=== PATIENT | male | born 1930 | race Hispanic/Latino ===

== ENCOUNTER 2016-09-04 10:46 | Outpatient (CLI) | payer MEDICARE ==
--- NOTE | 2016-09-04 12:34 | Magnetic Resonance Report ---
MRI BRAIN WITHOUT CONTRAST: 09/04/16 10:46:00 CLINICAL: Altered mental status. TECHNIQUE: Axial diffusion, T1, T2, FLAIR, gradient echo T2*, and sagittal T1 sequences on a 1.5 Abby magnet. FINDINGS: The ventricles and sulci are enlarged but commensurate with age. No restricted diffusion. Moderate bilateral subcortical and periventricular multifocal white matter hyperintensities FLAIR and T2. No mass or mass effect. No hemorrhage, edema or extra-axial collection. Normal pituitary and optic chiasm. The brainstem and cerebellum are normal. Intact vascular flow voids. Normal sinuses. The orbits, and soft tissues are normal. Normal calvarium and skull base. IMPRESSION: No acute change. Moderate chronic white matter microangiopathy.
== END 2016-09-04 10:47 | disposition home or self-care (01) ==
LOC: VAS 10:46 → MRI 10:47
PROVIDERS: ATTEND Internal Medicine
DX: I67.2 Cerebral atherosclerosis (principal); R41.82 Altered mental status, unspecified; I73.89 Other specified peripheral vascular diseases
CPT/HCPCS: 70551; 93880

== ENCOUNTER 2017-01-02 08:36 | Emergency (ER) | payer MEDICARE ==
[2017-01-02 09:57] VITALS: BP 189/79
--- NOTE | 2017-01-02 10:20 | Emergency Department Report ---
ED General Adult HPI - General Chief complaint: High BP Stated complaint: HBP Time Seen by Provider: 01/02/17 09:41 Source: patient Mode of arrival: Ambulatory Limitations: Other - History of Present Illness Initial comments: 86-year-old male here with complaint of elevated blood pressure after starting Percocet last night. He has no other complaints and wants to go see his primary care physician. -: Gradual Severity scale (0 -10): 0 Consistency: now resolved Improves with: none Worsens with: none Associated Symptoms: denies other symptoms. denies: confusion, chest pain, cough, diaphoresis, fever/chills, headaches, loss of appetite, malaise, nausea/ vomiting, rash, seizure, shortness of breath, syncope, weakness - Related Data Home Medications Medication Instructions Recorded Confirmed Last Taken Lovastatin [Altoprev] 20 mg PO QPM 04/25/14 01/02/17 01/02/17 Ibuprofen [Motrin] 600 mg PO Q6H PRN 01/02/17 01/02/17 01/02/17 oxyCODONE /ACETAMINOPHEN [Percocet 1 tab PO Q6HR PRN 01/02/17 01/02/17 01/02/17 5/325] traMADol [Ultram] 50 mg PO Q6HR PRN 01/02/17 01/02/17 01/02/17 Allergies Allergy/AdvReac Type Severity Reaction Status Date / Time Penicillins Allergy Rash Verified 01/02/17 08:42 ED Review of Systems ROS: Stated complaint: HBP Other details as noted in HPI Comment: All other systems reviewed and negative Constitutional: denies: chills, fever Eyes: denies: eye pain, eye discharge, vision change ENT: denies: ear pain, throat pain Respiratory: denies: cough, shortness of breath, wheezing Cardiovascular: denies: chest pain, palpitations Endocrine: no symptoms reported Gastrointestinal: denies: abdominal pain, nausea, diarrhea Genitourinary: denies: urgency, dysuria Musculoskeletal: denies: back pain, joint swelling, arthralgia Skin: denies: rash, lesions Neurological: denies: headache, weakness, paresthesias Psychiatric: denies: anxiety, depression Hematological/Lymphatic: denies: easy bleeding, easy bruising ED Past Medical Hx - Past Medical History Hx Hypertension: Yes Hx Dementia: Yes Additional medical history: HIGH CHOLESTEROL - Surgical History Additional Surgical History: heart cath ([place])2014 - Family History Family history: no significant - Social History Smoking Status: Former Smoker Substance Use Type: Prescribed - Medications Home Medications: Home Medications Medication Instructions Recorded Confirmed Last Taken Type Lovastatin [Altoprev] 20 mg PO QPM 04/25/14 01/02/17 01/02/17 History Ibuprofen [Motrin] 600 mg PO Q6H PRN 01/02/17 01/02/17 01/02/17 History oxyCODONE /ACETAMINOPHEN [Percocet 1 tab PO Q6HR PRN 01/02/17 01/02/17 01/02/17 History 5/325] traMADol [Ultram] 50 mg PO Q6HR PRN 01/02/17 01/02/17 01/02/17 History ED Physical Exam - General Limitations: Other General appearance: alert, in no apparent distress - Head Head exam: Present: atraumatic, normocephalic - Eye Eye exam: Present: normal appearance - ENT ENT exam: Present: mucous membranes moist - Neck Neck exam: Present: normal inspection - Respiratory Respiratory exam: Present: normal lung sounds bilaterally. Absent: respiratory distress - Cardiovascular Cardiovascular Exam: Present: regular rate, normal rhythm. Absent: systolic murmur, diastolic murmur, rubs, gallop - GI/Abdominal GI/Abdominal exam: Present: soft, normal bowel sounds - Rectal Rectal exam: Present: deferred - Extremities Exam Extremities exam: Present: normal inspection - Back Exam Back exam: Present: normal inspection - Neurological Exam Neurological exam: Present: alert, oriented X3 - Psychiatric Psychiatric exam: Present: normal affect, normal mood - Skin Skin exam: Present: warm, dry, intact, normal color. Absent: rash ED Course Vital Signs 01/02/17 01/02/17 01/02/17 08:49 09:55 10:02 Temperature 98.0 F 97.8 F Pulse Rate 60 59 L Respiratory 17 16 18 Rate Blood Pressure 179/76 Blood Pressure 189/79 [Left] O2 Sat by Pulse 97 98 Oximetry ED Medical Decision Making - EKG Data -: EKG Interpreted by Dc - EKG Data 01/02/17 10:19 Sinus bradycardia rate of 56 left axis deviation no ST-T wave changes. 01/02/17 10:19 - Medical Decision Making 86-year-old male here with asymptomatic hypertension after starting Percocet. I counseled him that this is unlikely to be a good medication for an 86-year- old started. He is going to follow up with his primary care immediately did request Medications. Portions of this chart were dictated with dictation software. There may be dictation errors contained within this note. Critical care attestation.: If time is entered above; I have spent that time in minutes in the direct care of this critically ill patient, excluding procedure time. ED Disposition Clinical Impression: Hypertension Disposition: DC-01 TO HOME OR SELFCARE Is pt being admited?: No Condition: Stable Instructions: Hypertension (ED) Additional Instructions: Follow-up with your primary care
== END 2017-01-02 10:27 | disposition home or self-care (01) ==
LOC: ED 08:36
DX: I10 Essential (primary) hypertension (principal); F03.90 Unspecified dementia, unspecified severity, without behavioral disturbance, psychotic disturbance, mood disturbance, and anxiety; E78.00 Pure hypercholesterolemia, unspecified; Z87.891 Personal history of nicotine dependence; Z88.0 Allergy status to penicillin
CPT/HCPCS: 93005; 93010; 99282

== ENCOUNTER 2017-12-14 07:44 | Emergency (ER) | payer MEDICARE ==
[2017-12-14 09:09] LABS: Calcium 9.6 mg/dL (8.4-10.2)
--- NOTE | 2017-12-14 09:43 | Emergency Department Report ---
ED Recheck HPI - General Chief Complaint: Medical Clearance Stated Complaint: HIGH B/P Time Seen by Provider: 12/14/17 09:36 Source: patient Mode of arrival: Ambulatory Limitations: No Limitations - History of Present Illness Initial Comments: 87-year-old male past medical history hypertension, dementia presents for prescription for his blood pressure medication. Patient states he ran out of his blood pressure medication yesterday. He is unable to tell me precisely what medication he takes. Patient is awake alert and oriented 3. Denies any chest pain shortness of breath palpitations. Does not appear to be in any acute distress. MD Complaint: medication refill request Onset/Timin -: days(s) Returns Today for: request for prescription Context: ran out of medication - Related Data Home Medications Medication Instructions Recorded Confirmed Last Taken Lovastatin [Altoprev] 20 mg PO QPM 04/25/14 01/02/17 01/02/17 Ibuprofen [Motrin] 600 mg PO Q6H PRN 01/02/17 01/02/17 01/02/17 oxyCODONE /ACETAMINOPHEN [Percocet 1 tab PO Q6HR PRN 01/02/17 01/02/17 01/02/17 5/325] traMADol [Ultram] 50 mg PO Q6HR PRN 01/02/17 01/02/17 01/02/17 Previous Rx's Medication Instructions Recorded Last Taken Type Valsartan [Diovan] 320 mg PO QDAY #14 tablet 12/14/17 Unknown Rx Allergies Allergy/AdvReac Type Severity Reaction Status Date / Time Penicillins Allergy Rash Verified 01/02/17 08:42 ED Review of Systems ROS: Stated complaint: HIGH B/P Other details as noted in HPI Constitutional: denies: chills, fever Eyes: denies: eye pain, eye discharge, vision change ENT: denies: ear pain, throat pain Respiratory: denies: cough, shortness of breath, wheezing Cardiovascular: denies: chest pain, palpitations Endocrine: no symptoms reported Gastrointestinal: denies: abdominal pain, nausea, diarrhea Genitourinary: denies: urgency, dysuria Musculoskeletal: denies: back pain, joint swelling, arthralgia Skin: denies: rash, lesions Neurological: denies: headache, weakness, paresthesias Psychiatric: denies: anxiety, depression Hematological/Lymphatic: denies: easy bleeding, easy bruising ED Past Medical Hx - Past Medical History Hx Hypertension: Yes Hx Dementia: Yes Additional medical history: HIGH CHOLESTEROL - Surgical History Additional Surgical History: heart cath ([facility])2013 - Social History Smoking Status: Former Smoker - Medications Home Medications: Home Medications Medication Instructions Recorded Confirmed Last Taken Type Lovastatin [Altoprev] 20 mg PO QPM 04/25/14 01/02/17 01/02/17 History Ibuprofen [Motrin] 600 mg PO Q6H PRN 01/02/17 01/02/17 01/02/17 History oxyCODONE /ACETAMINOPHEN [Percocet 1 tab PO Q6HR PRN 01/02/17 01/02/17 01/02/17 History 5/325] traMADol [Ultram] 50 mg PO Q6HR PRN 01/02/17 01/02/17 01/02/17 History Valsartan [Diovan] 320 mg PO QDAY #14 tablet 12/14/17 Unknown Rx ED Physical Exam - General Limitations: No Limitations General appearance: alert, in no apparent distress - Head Head exam: Present: atraumatic, normocephalic - Eye Eye exam: Present: normal appearance, PERRL, EOMI - ENT ENT exam: Present: mucous membranes moist - Neck Neck exam: Present: normal inspection - Respiratory Respiratory exam: Present: normal lung sounds bilaterally. Absent: respiratory distress - Cardiovascular Cardiovascular Exam: Present: regular rate, normal rhythm. Absent: systolic murmur, diastolic murmur, rubs, gallop - GI/Abdominal GI/Abdominal exam: Present: soft, normal bowel sounds - Rectal Rectal exam: Present: deferred - Extremities Exam Extremities exam: Present: normal inspection - Back Exam Back exam: Present: normal inspection - Neurological Exam Neurological exam: Present: alert, oriented X3 - Psychiatric Psychiatric exam: Present: normal affect, normal mood - Skin Skin exam: Present: warm, dry, intact, normal color. Absent: rash ED Course Vital Signs 12/14/17 08:18 Temperature 98.2 F Pulse Rate 75 Blood Pressure 180/76 O2 Sat by Pulse 97 Oximetry ED Recheck MDM - Differential Diagnosis Prescription Refill(s) - Medical Decision Making A/P: Encounter for medication refill 1- 2- 3- 4- Critical care attestation.: If time is entered above; I have spent that time in minutes in the direct care of this critically ill patient, excluding procedure time. ED Disposition Clinical Impression: Medication refill Disposition: DC-01 TO HOME OR SELFCARE Is pt being admited?: No Does the pt Need Aspirin: No Condition: Stable Instructions: Hypertension (ED) Prescriptions: Valsartan [Diovan] 320 mg PO QDAY #14 tablet Referrals: SHERRI REMY MD [Referring] - 3-5 Days Time of Disposition: 10:59
[2017-12-14] MEDS ORDERED: DIOVAN PO ONE (11:36)
--- NOTE | 2017-12-14 11:36 | Emergency Department Report ---
ED Medical Clearance HPI - General Chief complaint: Medical Clearance Stated complaint: HIGH B/P Time Seen by Provider: 12/14/17 09:36 Source: patient Mode of arrival: Ambulatory - History of Present Illness Initial comments: 87-year-old male past medical history hypertension, dementia presents for prescription for his blood pressure medication. Patient states he ran out of his blood pressure medication yesterday. He is unable to tell me precisely what medication he takes. Patient is awake alert and oriented 3. Denies any chest pain shortness of breath palpitations. Does not appear to be in any acute distress. Onset/Timin -: days(s) Alledged Intoxication: No Compliant with Home Medications: No (unknown) Associated Symptoms: confusion Home medications: Home Medications Medication Instructions Recorded Confirmed Last Taken Lovastatin [Altoprev] 20 mg PO QPM 04/25/14 01/02/17 01/02/17 Ibuprofen [Motrin] 600 mg PO Q6H PRN 01/02/17 01/02/17 01/02/17 oxyCODONE /ACETAMINOPHEN [Percocet 1 tab PO Q6HR PRN 01/02/17 01/02/17 01/02/17 5/325] traMADol [Ultram] 50 mg PO Q6HR PRN 01/02/17 01/02/17 01/02/17 Previous Rx's Medication Instructions Recorded Last Taken Type Valsartan [Diovan] 320 mg PO QDAY #14 tablet 12/14/17 Unknown Rx Allergies/Adverse reactions: Allergies Allergy/AdvReac Type Severity Reaction Status Date / Time Penicillins Allergy Rash Verified 12/14/17 14:05 ED Review of Systems ROS: Stated complaint: HIGH B/P Other details as noted in HPI Constitutional: denies: chills, fever Eyes: denies: eye pain, eye discharge, vision change ENT: denies: ear pain, throat pain Respiratory: denies: cough, shortness of breath, wheezing Cardiovascular: denies: chest pain, palpitations Endocrine: no symptoms reported Gastrointestinal: denies: abdominal pain, nausea, diarrhea Genitourinary: denies: urgency, dysuria Musculoskeletal: denies: back pain, joint swelling, arthralgia Skin: denies: rash, lesions Neurological: as per HPI. denies: headache, weakness, paresthesias, confusion ( hx of dementia) Psychiatric: denies: anxiety, depression Hematological/Lymphatic: denies: easy bleeding, easy bruising ED Past Medical Hx - Past Medical History Hx Hypertension: Yes Hx Dementia: Yes Additional medical history: HIGH CHOLESTEROL - Surgical History Additional Surgical History: heart cath ([facility])2013 - Social History Smoking Status: Former Smoker - Medications Home Medications: Home Medications Medication Instructions Recorded Confirmed Last Taken Type Lovastatin [Altoprev] 20 mg PO QPM 04/25/14 01/02/17 01/02/17 History Ibuprofen [Motrin] 600 mg PO Q6H PRN 01/02/17 01/02/17 01/02/17 History oxyCODONE /ACETAMINOPHEN [Percocet 1 tab PO Q6HR PRN 01/02/17 01/02/17 01/02/17 History 5/325] traMADol [Ultram] 50 mg PO Q6HR PRN 01/02/17 01/02/17 01/02/17 History Valsartan [Diovan] 320 mg PO QDAY #14 tablet 12/14/17 Unknown Rx ED Physical Exam - General Limitations: No Limitations General appearance: alert, in no apparent distress - Head Head exam: Present: atraumatic, normocephalic - Eye Eye exam: Present: normal appearance - ENT ENT exam: Present: mucous membranes moist - Neck Neck exam: Present: normal inspection - Respiratory Respiratory exam: Present: normal lung sounds bilaterally. Absent: respiratory distress - Cardiovascular Cardiovascular Exam: Present: regular rate, normal rhythm. Absent: systolic murmur, diastolic murmur, rubs, gallop - GI/Abdominal GI/Abdominal exam: Present: soft, normal bowel sounds - Rectal Rectal exam: Present: deferred - Extremities Exam Extremities exam: Present: normal inspection - Back Exam Back exam: Present: normal inspection - Neurological Exam Neurological exam: Present: alert, oriented X3 - Psychiatric Psychiatric exam: Present: normal affect, normal mood - Skin Skin exam: Present: warm, dry, intact, normal color. Absent: rash ED Course Vital Signs 12/14/17 12/14/17 12/14/17 08:18 11:20 11:46 Temperature 98.2 F Pulse Rate 75 62 62 Respiratory 18 Rate Blood Pressure 180/76 213/108 Blood Pressure 213/108 [Left] O2 Sat by Pulse 97 96 Oximetry 12/14/17 12:47 Temperature Pulse Rate 62 Respiratory Rate Blood Pressure Blood Pressure 180/84 [Left] O2 Sat by Pulse Oximetry ED Medical Decision Making - Lab Data Result diagrams: 12/14/17 11:25 12/14/17 08:34 - Medical Decision Making A/P: Request for medication refill, confusion, possible decompensated dementia 1-because patient was unable to elaborate history a called his pharmacy which provided me with the number for his primary care doctor. I called Dr. Penaloza at [phone] called me back informing me that he had refilled patient's medicines earlier this week. Patient as per Dr. Penaloza has refills on all his medicines. As per Dr. Penaloza patient was in his office yesterday and visited 2-[address] Penaloza noted that he may have been confused and attempted to further assess patient but he left office before Dr. Penaloza could do more for him. Dr. Penaloza is expressing concern that patient may have decompensated dementia and may be confused. I related this to Dr. Grossman. Labs basic tests to further evaluate the patient. 2-blood work, urine, EKG, head CT 3-I informed patient of need for further evaluation 4- Dr. Bedoya came to evaluate patient in the ED for admission for further workup of his possible decompensated dementia versus hypertensive encephalopathy. Patient had a long detailed discussion with Dr. Bedoya. Dr. Bedoya found patient to be competent. Patient stated he did not want to stay in the hospital or be admitted. Patient signed AMA form and left ED. I informed Dr. Bedoya and Dr. Grossman of this event. ED Disposition Clinical Impression: Medication refill, Left against medical advice Dementia Qualifiers: Dementia type: unspecified type Dementia behavioral disturbance: without behavioral disturbance Qualified Code(s): F03.90 - Unspecified dementia without behavioral disturbance Disposition: - LEFT AGAINST MED ADVICE Is pt being admited?: No Does the pt Need Aspirin: No Condition: Stable Instructions: Hypertension (ED) Prescriptions: Valsartan [Diovan] 320 mg PO QDAY #14 tablet Referrals: FLASH DE LEON MD [Referring] - 3-5 Days SHERRI REMY MD [Referring] - 3-5 Days MARIANNE DE LEON MD [Staff Physician] - 3-5 Days
[2017-12-14 11:37] LABS: Basophils # (Auto) 0.1 K/mm3 (0.0-0.1); Basophils % (Auto) 0.9 % (0.0-1.8); Eosinophils # (Auto) 0.1 K/mm3 (0.0-0.4); Eosinophils % (Auto) 1.5 % (0.0-4.3); Hematocrit 39.9 % (35.5-45.6); Hemoglobin 13.4 gm/dl (11.8-15.2); Lymphocytes # (Auto) 1.1 K/mm3 (1.2-5.4); Lymphocytes % (Auto) 15.3 % (13.4-35.0); Mean Corpuscular HGB Conc 34 % (32-34); Mean Corpuscular Hemoglobin 29 pg (28-32); Mean Corpuscular Volume 87 fl (84-94); Monocytes # (Auto) 0.9 K/mm3 (0.0-0.8); Monocytes % (Auto) 13.4 % (0.0-7.3); Platelet Count 197 K/mm3 (140-440); Red Blood Count 4.59 M/mm3 (3.65-5.03); Red Cell Distribution Width 14.5 % (13.2-15.2)
[2017-12-14 11:48] LABS: INR 0.95 (0.87-1.13)
[2017-12-14 11:55] LABS: Alanine Aminotransferase 12 units/L (7-56); Albumin 4.1 g/dL (3.9-5)
[2017-12-14 12:03] LABS: Bilirubin,Direct < 0.2 mg/dL (0-0.2)
[2017-12-14 12:46] LABS: Bilirubin,Urine NEG (Negative); Blood,Urine SM (Negative); Color,Urine Yellow (Yellow); Hyaline Casts,Urine 1 /LPF; Protein,Urine <15 mg/dL mg/dL (Negative); Urobilinogen,Urine < 2.0 mg/dL (<2.0); WBC,Urine < 1.0 /HPF (0.0-6.0)
[2017-12-14 12:47] VITALS: BP 180/84
--- NOTE | 2017-12-14 12:59 | Cat Scan Report ---
FINAL REPORT EXAM: CT HEAD/BRAIN WO CON HISTORY: Altered Mental Status TECHNIQUE: CT of the head was performed without intravenous contrast. PRIORS: None. FINDINGS: The ventricles are normal in shape and position. The ventricles are nondilated. No intracranial hemorrhage, mass, mass effect, midline shift or evidence of acute ischemic infarct. The basilar cisterns are patent. Moderate areas of low-attenuation are seen in the periventricular and subcortical white matter. There is a right maxillary sinus mucous retention cyst. The extracranial soft tissues demonstrate no abnormality. The calvarium is intact. The orbits are intact. The mastoid air cells are clear. IMPRESSION: 1. No acute intracranial abnormality. 2. Moderate findings of chronic microvascular ischemic disease.
[2017-12-14] MEDS ORDERED: SODIUM CHLORIDE FLUSH SYRINGE 10 ML IV PRN (13:58)
[2017-12-14] MEDS ORDERED: TYLENOL PO PRN (13:58)
[2017-12-14] MEDS ORDERED: ZOFRAN IV PRN (13:58)
[2017-12-14] MEDS ORDERED: MORPHINE IV PRN (13:58)
[2017-12-14] MEDS ORDERED: ULTRAM PO PRN (14:01)
[2017-12-14] MEDS ORDERED: MOTRIN PO PRN (14:01)
[2017-12-14] MEDS ORDERED: PERCOCET 5/325 PO PRN (14:01)
--- NOTE | 2017-12-14 14:03 | History and Physical Report ---
History of Present Illness Chief complaint: My blood pressure is high, History of present illness: 87 YO Male with HTN, HLD, Dementia presents to ED for evaluation. Pt states that he ran out of his blood pressure medication and subsequently drove himself to the hospital to get a refill. Pt acknowledges leg swelling. Pt seen and evaluated in ED and found to have systolic BP above 200. Pt also found to have evidence of Dialstolic CHF. Pt denies fever, chills, CP, palpitations, NVD, Trauma, syncope, BRBPR, unintentional weight loss, night sweats. Pt admitted to telemetry. Past History Past Medical History: hypertension, hyperlipidemia, other (Dementia) Past Surgical History: No surgical history, Other (reviewed) Social history: , Lives alone. denies: smoking, alcohol abuse, prescription drug abuse Family history: hypertension Medications and Allergies Allergies Allergy/AdvReac Type Severity Reaction Status Date / Time Penicillins Allergy Rash Verified 12/14/17 14:05 Home Medications Medication Instructions Recorded Confirmed Last Taken Type Lovastatin [Altoprev] 20 mg PO QPM 04/25/14 01/02/17 01/02/17 History Ibuprofen [Motrin] 600 mg PO Q6H PRN 01/02/17 01/02/17 01/02/17 History oxyCODONE /ACETAMINOPHEN [Percocet 1 tab PO Q6HR PRN 01/02/17 01/02/17 01/02/17 History 5/325] traMADol [Ultram] 50 mg PO Q6HR PRN 01/02/17 01/02/17 01/02/17 History Valsartan [Diovan] 320 mg PO QDAY #14 tablet 12/14/17 Unknown Rx Active Meds: Active Medications Acetaminophen (Tylenol) 650 mg PO Q4H PRN PRN Reason: Pain MILD(1-3)/Fever >100.5/MCGOWAN Ibuprofen (Motrin) 600 mg PO Q6H PRN PRN Reason: Pain Miscellaneous Medication (Lovastatin [Altoprev]) 20 mg PO QPM BILL Morphine Sulfate (Morphine) 2 mg IV Q4H PRN PRN Reason: Pain, Moderate (4-6) Ondansetron HCl (Zofran) 4 mg IV Q8H PRN PRN Reason: Nausea And Vomiting Oxycodone/Acetaminophen (Percocet 5/325) 1 tab PO Q6HR PRN PRN Reason: Pain Sodium Chloride (Sodium Chloride Flush Syringe 10 Ml) 10 ml IV BID BILL Sodium Chloride (Sodium Chloride Flush Syringe 10 Ml) 10 ml IV PRN PRN PRN Reason: LINE FLUSH Tramadol HCl (Ultram) 50 mg PO Q6HR PRN PRN Reason: Pain Review of Systems Constitutional: no weight loss, no weight gain, no fever, no chills Ears, nose, mouth and throat: no ear pain, no ear discharge, no tinnitis, no decreased hearing, no nose pain, no nasal congestion, no nasal discharge Cardiovascular: high blood pressure, leg edema, no chest pain, no orthopnea, no palpitations Respiratory: no cough, no cough with sputum, no excessive sputum, no hemoptysis , no shortness of breath Gastrointestinal: no nausea, no vomiting, no diarrhea, no constipation Genitourinary Male: no hematuria, no flank pain, no discharge, no urinary frequency, no urinary hesitancy, no nocturia Rectal: no pain, no incontinence, no bleeding Musculoskeletal: no neck stiffness, no neck pain, no shooting arm pain, no arm numbness/tingling, no low back pain, no shooting leg pain, no leg numbness/ tingling Integumentary: no rash, no pruritis, no redness, no sores, no wounds, no jaundice Neurological: no head injury, no transient paralysis, no paralysis, no weakness , no parathesias, no numbness, no tingling, no seizures Psychiatric: no anxiety, no memory loss, no change in sleep habits, no sleep disturbances, no insomnia, no hypersomnia, no change in appetite, no change in libido Endocrine: no cold intolerance, no heat intolerance, no polyphagia, no excessive thirst, no polydipsia, no polyuria, no nocturia, no excessive sweating Hematologic/Lymphatic: no easy bruising, no easy bleeding, no lymphadenopathy, no lymphedema Allergic/Immunologic: no urticaria, no allergic rhinitis, no wheezing, no persistent infections, no anaphylaxis Exam - Constitutional Vitals: Temp Pulse Resp BP Pulse Ox 98.2 F 62 18 180/84 96 12/14/17 08:18 12/14/17 12:47 12/14/17 11:20 12/14/17 12:47 12/14/17 11:20 General appearance: Present: mild distress - EENT Eyes: Present: PERRL ENT: hearing intact, clear oral mucosa - Neck Neck: Present: supple, normal ROM - Respiratory Respiratory effort: normal Respiratory: bilateral: CTA - Cardiovascular Heart Sounds: Present: S1 & S2. Absent: rub, click - Extremities Extremities: pulses symmetrical, No edema Peripheral Pulses: within normal limits - Abdominal General gastrointestinal: Present: soft, non-tender, non-distended, normal bowel sounds Male genitourinary: Present: normal - Integumentary Integumentary: Present: clear, warm, dry - Musculoskeletal Musculoskeletal: gait normal, strength equal bilaterally - Psychiatric Psychiatric: appropriate mood/affect, intact judgment & insight - Neurologic Neurologic: CNII-XII intact, moves all extremities Results - Labs CBC & Chem 7: 12/14/17 11:25 12/14/17 08:34 Labs: Abnormal lab results 12/14/17 12/14/17 12/14/17 Range/Units 08:34 11:25 11:25 [place] % (Auto) 13.4 H (0.0-7.3) % Lymph # 1.1 L (1.2-5.4) K/mm3 [place] # 0.9 H (0.0-0.8) K/mm3 Glucose 103 H (75-100) mg/dL Total Creatine Kinase 180 H (55-170) units/L Salicylates (2.8-20.0) mg/dL Acetaminophen (10.0-30.0) ug/mL 12/14/17 12/14/17 Range/Units 11:25 11:25 [place] % (Auto) (0.0-7.3) % Lymph # (1.2-5.4) K/mm3 [place] # (0.0-0.8) K/mm3 Glucose (75-100) mg/dL Total Creatine Kinase (55-170) units/L Salicylates < 0.3 L (2.8-20.0) mg/dL Acetaminophen < 5.0 L (10.0-30.0) ug/mL Assessment and Plan - Patient Problems (1) Diastolic CHF Current Visit: Yes Status: Acute Qualifiers: Heart failure chronicity: acute Qualified Code(s): I50.31 - Acute diastolic (congestive) heart failure Plan to address problem: Strict I/O, monitor uop q shift, daily weight, echo, supplemental oxygen, admit to telemetry, serial cardiac enzymes, d dimer, bnp, chest x ray, thyroid panel, (2) Hypertensive emergency Current Visit: Yes Status: Acute Plan to address problem: IV hydralazine prn, monitor bp q shift, (3) DVT prophylaxis Current Visit: Yes Status: Acute Plan to address problem: scd to ble while in bed.
[2017-12-14] MEDS ORDERED: NON-FORMULARY (Lovastatin [Altoprev] 20 MG) PO SCH (18:00)
[2017-12-14] MEDS ORDERED: SODIUM CHLORIDE FLUSH SYRINGE 10 ML IV SCH (22:00)
[2017-12-14] MEDS ORDERED: PRAVACHOL PO SCH (22:00)
== END 2017-12-14 14:35 | disposition left against medical advice (07) ==
LOC: ED 07:44 → 4A 13:58 → UNDOADMIN 13:58
DX: I10 Essential (primary) hypertension (principal); Z76.0 Encounter for issue of repeat prescription; F03.90 Unspecified dementia, unspecified severity, without behavioral disturbance, psychotic disturbance, mood disturbance, and anxiety; E78.00 Pure hypercholesterolemia, unspecified; Z87.891 Personal history of nicotine dependence; Z88.0 Allergy status to penicillin
CPT/HCPCS: 36415; 70450; 80048; 80074; 81001; 82140; 82550; 84443; 85025; 85610; 85730; 93005; 93010; 99284; G0480; 80320

== ENCOUNTER 2018-02-24 17:17 | Emergency (ER) | payer MEDICARE ==
[2018-02-24 17:59] VITALS: BP 144/79
[2018-02-24] MEDS ORDERED: ASPIRIN PO ONE (17:59)
[2018-02-24 18:36] LABS: Basophils # (Auto) 0.1 K/mm3 (0.0-0.1); Basophils % (Auto) 1.1 % (0.0-1.8); Eosinophils # (Auto) 0.1 K/mm3 (0.0-0.4); Eosinophils % (Auto) 1.1 % (0.0-4.3); Hemoglobin 13.7 gm/dl (11.8-15.2); Lymphocytes # (Auto) 1.2 K/mm3 (1.2-5.4); Lymphocytes % (Auto) 13.5 % (13.4-35.0); Mean Corpuscular HGB Conc 34 % (32-34); Mean Corpuscular Hemoglobin 29 pg (28-32); Mean Corpuscular Volume 86 fl (84-94); Monocytes # (Auto) 0.9 K/mm3 (0.0-0.8); Monocytes % (Auto) 10.8 % (0.0-7.3); Platelet Count 236 K/mm3 (140-440); Red Blood Count 4.75 M/mm3 (3.65-5.03); Red Cell Distribution Width 14.5 % (13.2-15.2)
== END 2018-02-24 19:23 | disposition left against medical advice (07) ==
LOC: ED 17:17
DX: R07.89 Other chest pain (principal); Z53.21 Procedure and treatment not carried out due to patient leaving prior to being seen by health care provider
CPT/HCPCS: 36415; 80048; 84484; 85025; 93005; 93010

== ENCOUNTER 2018-02-26 23:43 | Emergency (ER) | payer MEDICARE ==
[2018-02-27 01:24] LABS: Basophils # (Auto) 0.1 K/mm3 (0.0-0.1); Basophils % (Auto) 0.9 % (0.0-1.8); Eosinophils # (Auto) 0.1 K/mm3 (0.0-0.4); Eosinophils % (Auto) 1.4 % (0.0-4.3); Hematocrit 40.3 % (35.5-45.6); Hemoglobin 13.4 gm/dl (11.8-15.2); Lymphocytes % (Auto) 22.8 % (13.4-35.0); Mean Corpuscular HGB Conc 33 % (32-34); Mean Corpuscular Hemoglobin 29 pg (28-32); Mean Corpuscular Volume 87 fl (84-94); Monocytes % (Auto) 11.6 % (0.0-7.3); Platelet Count 235 K/mm3 (140-440); Red Blood Count 4.64 M/mm3 (3.65-5.03); Red Cell Distribution Width 14.4 % (13.2-15.2)
[2018-02-27 01:53] LABS: Albumin 3.6 g/dL (3.9-5); Calcium 9.2 mg/dL (8.4-10.2)
--- NOTE | 2018-02-27 03:12 | Emergency Department Report ---
History of Present Illness - General Chief Complaint: Overdose Stated Complaint: SUICIDAL/MH Time Seen by Provider: 02/27/18 02:02 Source: patient, family Mode of arrival: Ambulatory Limitations: No Limitations - History of Present Illness Initial Comments: 87-year-old male brought in by son with report of possible overdose tonight. States patient had a box of generic cold medication tablets. Box contained 16 capsules, there are 8 capsules missing. Son states neighbor went to check on patient and found him sluggish and not very responsive. Son states this was around 10 PM. Patient to the ER for further evaluation. Patient denies suicidal ideation. Also denies taking the medication. Pt states, "Why would I do that? I'm 87 yrs old, I'll probably next week anyway." Son states patient has appointment with psychiatrist tomorrow for evaluation of his dementia, suicidal statements that he has made in the past, and the fact that he "drinks things around the house." When asked what pt drinks, son reports castor oil only. Son also states pt has made threats to harm his neighbors. MD Complaint: other (possible overdose) -: hour(s) (5) Intent: other (patient denies taking any substances) Treatments Prior to Arrival: none - Related Data Home Medications Medication Instructions Recorded Confirmed Last Taken Lovastatin [Altoprev] 20 mg PO QPM 04/25/14 01/02/17 01/02/17 Ibuprofen [Motrin] 600 mg PO Q6H PRN 01/02/17 01/02/17 01/02/17 oxyCODONE /ACETAMINOPHEN [Percocet 1 tab PO Q6HR PRN 01/02/17 01/02/17 01/02/17 5/325] traMADol [Ultram] 50 mg PO Q6HR PRN 01/02/17 01/02/17 01/02/17 Previous Rx's Medication Instructions Recorded Last Taken Type Valsartan [Diovan] 320 mg PO QDAY #14 tablet 12/14/17 Unknown Rx Allergies Allergy/AdvReac Type Severity Reaction Status Date / Time Penicillins Allergy Rash Verified 12/14/17 14:05 ED Review of Systems ROS: Stated complaint: SUICIDAL/MH Other details as noted in HPI Comment: All other systems reviewed and negative Psychiatric: denies: auditory hallucinations, suicidal thoughts ED Past Medical Hx - Past Medical History Previous Medical History?: Yes Hx Hypertension: Yes Hx Dementia: Yes Additional medical history: HIGH CHOLESTEROL - Surgical History Past Surgical History?: Yes Additional Surgical History: [facility] ([facility]2013 - Social History Smoking Status: Former Smoker Substance Use Type: None - Medications Home Medications: Home Medications Medication Instructions Recorded Confirmed Last Taken Type Lovastatin [Altoprev] 20 mg PO QPM 04/25/14 01/02/17 01/02/17 History Ibuprofen [Motrin] 600 mg PO Q6H PRN 01/02/17 01/02/17 01/02/17 History oxyCODONE /ACETAMINOPHEN [Percocet 1 tab PO Q6HR PRN 01/02/17 01/02/17 01/02/17 History 5/325] traMADol [Ultram] 50 mg PO Q6HR PRN 01/02/17 01/02/17 01/02/17 History Valsartan [Diovan] 320 mg PO QDAY #14 tablet 12/14/17 Unknown Rx ED Physical Exam - General Limitations: No Limitations General appearance: alert, in no apparent distress - Head Head exam: Present: atraumatic, normocephalic - Eye Eye exam: Present: normal appearance - ENT ENT exam: Present: mucous membranes moist - Neck Neck exam: Present: normal inspection - Respiratory Respiratory exam: Present: normal lung sounds bilaterally. Absent: respiratory distress - Cardiovascular Cardiovascular Exam: Present: regular rate, normal rhythm - GI/Abdominal GI/Abdominal exam: Present: soft. Absent: tenderness - Extremities Exam Extremities exam: Present: normal inspection - Neurological Exam Neurological exam: Present: alert, oriented X3 - Psychiatric Psychiatric exam: Present: normal affect, normal mood. Absent: suicidal ideation - Skin Skin exam: Present: warm, dry ED Course Vital Signs 02/27/18 02/27/18 02/27/18 00:23 02:30 05:00 Temperature 97.9 F 98 F Pulse Rate 59 L 54 L 52 L Respiratory 18 16 16 Rate Blood Pressure 121/58 Blood Pressure 157/72 160/72 [Left] O2 Sat by Pulse 96 100 100 Oximetry 02/27/18 02/27/18 02/27/18 05:13 06:28 07:57 Temperature Pulse Rate 53 L Respiratory 18 16 18 Rate Blood Pressure Blood Pressure 160/68 [Left] O2 Sat by Pulse 98 Oximetry 02/27/18 02/27/1818 14:41 20:49 21:06 Temperature 97.8 F 97.9 F Pulse Rate 60 54 L Respiratory 16 18 18 Rate Blood Pressure Blood Pressure 159/63 166/79 [Left] O2 Sat by Pulse 98 98 Oximetry ED Medical Decision Making - Lab Data Result diagrams: 02/27/18 01:01 02/27/18 Unknown - EKG Data -: EKG Interpreted by Me EKG shows normal: sinus rhythm, QRS complexes, ST-T waves Rate: bradycardia - EKG Data Interpretation: no acute changes, other (prolonged [place]) - Medical Decision Making 87-year-old male with questionable overdose on cold medication. Tabs contained Tylenol, dextromethorphan. Son states patient took pills at 10 p.m. Tylenol level only 11 after 4 hours. Patient not drowsy, is alert and awake. Patient denying ingestion of pills. Pt also has percocet listed in med list, unsure if he still takes this, as this could be a source of the tylenol also. Due to son' s report of pt's suicidal thoughts and threats to harm others, patient placed on 1013 for further psych evaluation - Differential Diagnosis dementia, overdose, suicidal ideations Critical care attestation.: If time is entered above; I have spent that time in minutes in the direct care of this critically ill patient, excluding procedure time. ED Disposition Clinical Impression: Dementia Qualifiers: Dementia type: unspecified type Dementia behavioral disturbance: without behavioral disturbance Qualified Code(s): F03.90 - Unspecified dementia without behavioral disturbance Disposition: [id number]/[id number] PSY HOSP/PSY UNIT Is pt being admited?: No Condition: Stable Referrals: PRIMARY CARE, [Primary Care Provider] - 3-5 Days
[2018-02-27] MEDS ORDERED: ATIVAN ONE (05:00)
[2018-02-27] MEDS ORDERED: ATIVAN IV ONE (05:12)
[2018-02-27 07:52] LABS: Bilirubin,Urine NEG (Negative); Blood,Urine NEG (Negative); Color,Urine Yellow (Yellow); Hyaline Casts,Urine 3 /LPF; Mucus,Urine FEW /HPF; Protein,Urine <15 mg/dL mg/dL (Negative); Urobilinogen,Urine < 2.0 mg/dL (<2.0)
[2018-02-27 08:02] LABS: WBC,Urine < 1.0 /HPF (0.0-6.0)
[2018-02-27 08:32] LABS: Amphetamine Screen,Urine PRESUMPTIVE NEGATIVE; Benzodiazepines Screen,Urine PRESUMPTIVE NEGATIVE; Cannabinoid Screen,Urine PRESUMPTIVE NEGATIVE; Cocaine Screen,Urine PRESUMPTIVE NEGATIVE; Methadone Screen,Urine PRESUMPTIVE NEGATIVE; Opiate Screen,Urine PRESUMPTIVE NEGATIVE
--- NOTE | 2018-02-27 13:27 | Consultation ---
History of Present Illness - Reason for Consult Consult date: 02/27/18 Reason for consult: Mental Health Evaluation Requesting physician: MICHAEL WAGNER - Chief Complaint Chief complaint: "Hello" - History of Present Psychiatric Illness 87-year-old male brought in by son with report of possible overdose. Per the patient son Janes Metcalf, he stated that his father took at least 8 cold medication capsules. Today the patient is calm, but confused during the assessment. He rambles answers when he is asked questions. He would not answer when asked about being suicidal. He wasn't able to recall numbers in 5 mins, ID the current [place] President, or state his . Per collateral information from his son Janes Metcalf who was at the bedside, he stated that his father has been mentioning that he don't want to live and drinking different liquids while home alone. He stated that he don't feel that his father is safe to be alone. The patient isn't a good historian at this time. No gestures of SI/HI's. Medications and Allergies Allergies Allergy/AdvReac Type Severity Reaction Status Date / Time Penicillins Allergy Rash Verified 12/14/17 14:05 Home Medications Medication Instructions Recorded Confirmed Last Taken Type Lovastatin [Altoprev] 20 mg PO QPM 04/25/14 01/02/17 01/02/17 History Ibuprofen [Motrin] 600 mg PO Q6H PRN 01/02/17 01/02/17 01/02/17 History oxyCODONE /ACETAMINOPHEN [Percocet 1 tab PO Q6HR PRN 01/02/17 01/02/17 01/02/17 History 5/325] traMADol [Ultram] 50 mg PO Q6HR PRN 01/02/17 01/02/17 01/02/17 History Valsartan [Diovan] 320 mg PO QDAY #14 tablet 12/14/17 Unknown Rx Past psychiatric history - Past Medical History Past Medical History: hypertension Past Surgical History: No surgical history - past Psychiatric treatment and history psychiatric treatment history: Hx of dementia per his son Janes Metcalf. Janes Metcalf denies a fam psy hx. - Social History Social history: Lives alone Mental Status Exam - Vital signs Last Vital Signs Temp 98 F 02/27/18 02:30 Pulse 53 L 02/27/18 06:28 Resp 18 02/27/18 07:57 BP 160/68 09/27/18 06:28 Pulse Ox 98 02/27/18 06:28 - Exam Narrative exam: MSE: Appearance: calm Behavior: regular eye contact Speech: regular rate and tone Mood: unable to assess Affect: flat Thought Process: confused Thought Content: no gestures of SI/HI's Motor Activity: ambulatory Cognition: alert Insight: impaired Judgment: impaired Results Result Diagrams: 02/27/18 01:01 02/27/18 Unknown Abnormal lab results 02/27/18 02/27/18 02/27/18 Range/Units 01:01 01:01 Unknown [place] % (Auto) 11.6 H (0.0-7.3) % [place] # 1.0 H (0.0-0.8) K/mm3 Total Protein 6.1 L (6.3-8.2) g/dL Albumin 3.6 L (3.9-5) g/dL Salicylates < 0.3 L (2.8-20.0) mg/dL All other labs normal. Assessment and Plan Assessment and plan: Impression: Hx of Dementa. Today the patient is calm, but confused during the assessment. Recommendation/Plan: Continue 1013 with pending placement to [facility]. Recommend Delirium precautions below: 1. Frequently reorient patient and involve him/her in their care (simple explanations of procedures, tests, medications). 2. Lights on and shades open during daytime hours. 3. Write date and goals of care in a visible place. 4. Try to avoid unnecessary interruptions to sleep during nighttime hours. 5. Obtain glasses, hearing aids from home if patient uses these at baseline. 6. Avoid medications that may exacerbate delirium (especially narcotics, benzodiazepines, barbiturates, ambien, lunesta, and medications with excessive anticholinergic properties).
[2018-02-27] MEDS ORDERED: GEODON IM ONE (16:53)
[2018-02-27] MEDS ORDERED: WATER FOR INJ (PF) ONE (16:54)
[2018-02-27] MEDS ORDERED: GEODON IM PRN (17:03)
[2018-02-27 20:50] VITALS: BP 166/79
== END 2018-02-27 21:57 ==
LOC: ED 23:43
DX: F03.90 Unspecified dementia, unspecified severity, without behavioral disturbance, psychotic disturbance, mood disturbance, and anxiety (principal); I10 Essential (primary) hypertension; E78.00 Pure hypercholesterolemia, unspecified; Z87.891 Personal history of nicotine dependence; Z88.0 Allergy status to penicillin
CPT/HCPCS: 36415; 80053; 80307; 81001; 85025; 93005; 93010; 96372; 96374; 99285; G0480; J2060; J3486; 80320